=== PATIENT | female | born 1990 | race Caucasian/White ===

== ENCOUNTER 2024-11-03 08:37 | Emergency (ER) | payer BC ==
[~2024-11-03] VITALS: Ht 172.7 cm; Wt 60.0 kg
[2024-11-03 08:38] VITALS: O2SAT 100
[2024-11-03] MEDS: SODIUM CHLORIDE 0.9% 1,000 ML IV ONE (08:45)
[2024-11-03 09:07] LABS: BASOPHILS % 1.1 % (0.0-2.0); EOSINOPHILS % 2.5 % (0.0-5.0); HEMOGLOBIN. 13.5 g/dL (12.0-16.0); MEAN CORPUSCULAR HEMOGLOBIN 29.5 pg (28.0-32.0); MEAN CORPUSCULAR HGB CONC 33.6 g/dL (31.0-37.0); MEAN CORPUSCULAR VOLUME 87.6 fL (81.0-99.0); MEAN PLATELET VOLUME 7.3 fl (7.4-10.4); MONOCYTES % 7.1 % (2.0-8.0); NEUTROPHILS % 51.3 % (40.0-76.0); PLATELET 214 x1000/uL (130-400); RED BLOOD CELL COUNT 4.57 mill/uL (4.2-5.4); RED CELL DISTRIBUTION WIDTH 12.5 % (11.6-14.6); WHITE BLOOD COUNT 5.7 x1000/uL (4.5-11.0)
[2024-11-03 09:12] LABS: CHLORIDE 110 mEq/L (98-107); SODIUM 139 mEq/L (136-145)
[2024-11-03 09:13] LABS: CALCIUM 8.3 mg/dL (8.7-10.4); CARBON DIOXIDE 25 mEq/L (21-32)
[2024-11-03 09:18] LABS: CREATININE 1.1 mg/dL (0.6-1.0); GLUCOSE 107 mg/dL (70-105); HCG SCREEN NEGATIVE; UREA NITROGEN BLOOD 17 mg/dL (9-23)
[2024-11-03 09:25] LABS: TROPONIN I HIGH SENSITIVITY < 4 ng/L (3.0-34)
[2024-11-03 12:23] VITALS: BP 97/52; PULSE 81; RESP 15; TEMP 36.8; O2SAT 98
== END 2024-11-03 12:57 | disposition home or self-care (01) ==
LOC: ER 08:37 → CANBEDREQ 12:20 → ER 12:57
DX: R55 Syncope and collapse (principal); Z98.890 Other specified postprocedural states
CPT/HCPCS: 99285; 96360; 76830; 76856; 71045; 80048; 84703; 85025; 84484; 36415; 93005; J7030